=== PATIENT | male | born 1935 | race Caucasian/White ===

== ENCOUNTER 2023-09-28 09:46 | Inpatient (IN) | payer MEDICARE, OTHER, SELFPAY ==
[2023-09-27 14:33] VITALS: BP 141/78
--- NOTE | 2023-09-27 14:38 | ED.GENMED ---
ED Provider Triage
-
Patient seen by provider in Triage?: Seen in Triage
87 year old male tripped over tomato plant and fell. On . Struck head and left thigh. Also has injury to left forearm. Alert on exam, no obvious deficit. No c-spine tenderness. Head CT, left femur and forearm xrays ordered. To RP.
History of Present Illness
General
Chief Complaint: Fall
Time Seen by Provider: 09/27/23 15:18
Past History
Past History
ED Past Medical History: Arrthythmia
Social History
Tobacco: Non-smoker
Alcohol: None
Drug: None
Personal:
Living: with family
Employment: Retired
Family History
Family History: Hypertension
Course
Orders/Labs/Results
Orders:
Orders
09/27/23 14:37
CT Head W/o Iv Contrast Urgent
Comment:
Reason For Exam: fall, on
CR Femur - Left Min 2 Vw Urgent
Comment:
Reason For Exam: fall
CR Forearm - Left 2 View Urgent
Comment:
Reason For Exam: fall
09/27/23 16:42
CT Lower Ext W/iv Cont Lt Urgent
Comment:
Reason For Exam: L thigh hematoma, on , fall
Acetaminophen [Tylenol] 650 mg PO NOW STA
09/27/23 17:13
Complete Blood Count/With Diff Urgent
Comprehensive Metabolic Panel Urgent
PTT Urgent
Prothrombin Time Urgent
09/27/23 19:06
HYDROmorphone [Dilaudid] 0.25 mg IV NOW STA
09/27/23 19:14
HYDROmorphone [Dilaudid] 0.5 mg IV NOW STA
Abnormal Lab Results
09/27/23
17:13
Plt Count 117 L 10^3/uL
(130-400)
Absolute Neuts (auto) 7.1 H 10^3/uL
(1.4-6.5)
Neutrophils % 78.9 H %
(42.2-75.2)
Lymphocytes % 13.3 L %
(20.5-51.1)
PT 18.3 H Sec
(11.4-14.6)
BUN 23 H mg/dl
(9-20)
Glucose 112 H mg/dl
(70-99)
Total Bilirubin 1.5 H mg/dl
(0.2-1.3)
09/27/23 17:13
09/27/23 17:13
Vital Signs
Initial and Last Documented VS:
Initial Vital Signs
Temp Pulse Resp BP Pulse Ox
98.9 F 71 18 141/78 97
09/27/23 14:33 09/27/23 14:33 09/27/23 14:33 09/27/23 14:33 09/27/23 14:33
Last Documented Vital Signs
Temp Pulse Resp BP Pulse Ox
98.9 F 63 18 141/86 97
09/27/23 14:33 09/27/23 19:17 09/27/23 14:33 09/27/23 19:17 09/27/23 19:17
ED Attending Note
-
Portions of this chart may have been created with voice recognition software.� Occasional wrong word or��sound alike� substitutions may have occurred due to the inherent limitations of voice recognition software.
Discharge Plan
Departure
Discharge Problem:
Traumatic hematoma of left thigh
Instructions: Hematoma
Prescriptions:
New
hydrocodone-acetaminophen 5-325 mg tablet
1 tab PO Q8H PRN (Reason: Pain) Qty: 12 0RF
No Action
[id number] [Centrum Silver Ultra Men's] 1 EACH tablet
1 ea PO DAILY
atorvastatin [Lipitor] 10 MG tablet
10 mg PO HS
finasteride [Proscar] 5 MG tablet
5 mg PO HS
calcium carbonate-vitamin D3 [Calcium 600 + D(3)] 1 EACH capsule
1 ea PO BID
dofetilide 500 MCG capsule
500 mcg PO BID
calcium carbonate [Antacid (calcium carbonate)] 200 MG tablet,chewable
200 mg PO DAILY
cephalexin 500 MG capsule
500 mg PO TID Qty: 3 0RF
Rx Instructions:
please take at 8pm tonight, then 8am and 4pm on 09/07.
dabigatran etexilate [Pradaxa] 150 MG capsule
150 mg PO BID Qty: 0 0RF
Rx Instructions:
HOLD post procedure- OK to resume on 09/07 in PM
Referrals:
Kandy Flores DO [Family Provider] - Follow up in 2-3 days
Rafat Chairez MD [Active] - Follow up in 5-7 days
Activity Restrictions/Additional Instructions:
YOU HAVE NO FRACTURES
BUT A LARGE HEMATOMA (BRUISING) TO YOUR THIGH
WEAR THE NATHANIEL WRAP DURING THE DAY
USE TH EWALKER TO HELP YOU WALK
EITHER TAKE REGULAR TYLENOL OR VICODIN EVERY 8 HORUS NEEDED FOR PAIN
IF YOU TAKE THE VICODIN, USE A STOOL SOFTENER TO PREVENT [id number]
MAKE SURE YOU ARE CAREFUL WHEN YOU GET UP AND THAT YOU ARE NOT DIZZY/FALL
RETURN FOR : NUMBNESSS/TINGLING/WEAKNESS IN YOUR LEGS, SEVERE PAIN, SEVERE SWELLING,COLOR CHANGE OR ANY CONCERNS
CALL ORTHO FOR FOLLOW UP
KEEP YOUR WOUNDS CLEAN AND DRY
Interventions
Interventions:
*Risk Screen - Suicide Last Done: 09/27/23 14:33
*General Assessment Last Done: 09/27/23 14:33
*Neglect/Abuse Screening Last Done: 09/27/23 14:33
ED-Musculoskeletal Assessment Last Done: 09/27/23 16:36
ED- Neurological Assessment Last Done: 09/27/23 16:36
ED-Skin Assessment Last Done: 09/27/23 16:36
Discharge Date and Time
Print Language: UZBEK
--- NOTE | 2023-09-27 15:34 | ED.GENMED ---
History of Present Illness
<Radha Huber PA-C - Last Filed: 09/28/23 16:25>
General
Chief Complaint: Fall
Source: patient
Exam Limitations: none
Time Seen by Provider: 09/27/23 15:18
Nursing documentation reviewed up to this point in time: agreed with
History of Present Illness
History of Present Illness:
pt is a 87 y/o M h/o afib on eliquis
mechanical fall this morning while in the garden and landed on his left thigh onto the garden bed rail. pt had a cell phone in that pocket that he landed on
did strike his head and has a heamtoma but no LOC
was able to get back up and walk back to the hous but then developed pain and swelling L thigh that is very painful with movement
he was able to get into a wheelchair where he lives and be wheeled to car and from car wheeled in
he has not had any confusion, vomiting, neck pain, cp, sob, flank pain/abdominal pain, back pain, weakness
he has pain and swelling at the left lateral femur limiting his ROM of his hip and knee
abrasion left forearm
superfiical right forearm scratch
tetnaus utd
nothing taken for pain
Past History
<Radha Huber PA-C - Last Filed: 09/28/23 16:25>
Past History
ED Past Medical History: Arrthythmia
Social History
Tobacco: Non-smoker
Alcohol: None
Drug: None
Personal:
Living: with family
Employment: Retired
Family History
Family History: Hypertension
Review of Systems
<Radha Huber PA-C - Last Filed: 09/28/23 16:25>
Review of Systems
Allergies reviewed?: Yes
All Other Systems: Not applicable
Phy Exam
<Radha Huber PA-C - Last Filed: 09/28/23 16:25>
Physical Exam
Physical Exam:
GENERAL: Alert , in no apparent distress
HEAD: small hematoma left upper forehead laterally
NECK: no midline tenderness, active ROM intact, no paraspinal muscle tenderness;
EYE: pupils equal and reactive, EOMs intact.
ENT: o/p clr, mmm. no hemotympanum
CARDIAC: Regular rate and rhythm, no edema
LUNGS: Clear breath sounds bilaterally, no acute respiratory distress, no wheezes/rales/rhonchi
ABDOMEN: Soft, without focal tenderness, no r/g, no cvat
NEUROLOGICAL: Alert and oriented, no focal neuro deficits, CN intact, 5/5 strength, sensation intact
SKIN: Warm and dry, superficial abrasion left forearm, scratches on the right forearm, hematoma left forehead, no skin changes to the left lateral thigh but significant soft tissue swelling
MUSCULOSKELETAL: Firm significant soft tissue swelling to the left lateral thigh distal to the hip and proximal to the knee without skin changes or bleeding, patient has painful range of motion of his left hip flexion but no bony tenderness of the
hip or knee
Abrasions to the bilateral forearms with full range of motion
PSYCH: Normal and appropriate interaction.
Course
<Radha Huber PA-C - Last Filed: 09/28/23 16:25>
Orders/Labs/Results
Orders:
Orders
09/27/23 Breakfast
Regular
At Your Request: Limited Participation
09/27/23 14:37
CT Head W/o Iv Contrast Urgent
Comment:
Reason For Exam: fall, on eliquis
CR Femur - Left Min 2 Vw Urgent
Comment:
Reason For Exam: fall
CR Forearm - Left 2 View Urgent
Comment:
Reason For Exam: fall
09/27/23 16:42
CT Lower Ext W/iv Cont Lt Urgent
Comment:
Reason For Exam: L thigh hematoma, on eliquis, fall
Acetaminophen [Tylenol] 650 mg PO NOW STA
09/27/23 17:13
Complete Blood Count/With Diff Urgent
Comprehensive Metabolic Panel Urgent
PTT Urgent
Prothrombin Time Urgent
09/27/23 19:06
HYDROmorphone [Dilaudid] 0.25 mg IV NOW STA
09/27/23 19:14
HYDROmorphone [Dilaudid] 0.5 mg IV NOW STA
09/27/23 22:19
Admit/Transfer Patient As Directed
Co-Sign Provider:
Level of Care: Observation services
Assign to:: Medical/Surgical
Physician / Group: Silvestre
Diagnosis: Fall, L Thigh Hematoma
PRN Pain Medication Management As Directed
May give lesser potent ordered pain med per pt: Yes
preference::
Protocol:: Medication orders for pain may be administered in a
manner that supports deferring to patient preference
when the pt is:
- Requesting an ordered lesser potent pain medication.
Least to most potent pain medications are defined
as: acetaminophen < NSAID < tramadol < opioids
(morphine, oxycodone, hydromorphone).
- Requesting a lesser dose of the same medication IF
ORDERED.
- Requesting a less intrusive route of administration
if both routes are prescribed by the provider (PO <
IV).
09/27/23 22:21
Code Status As Directed
Resuscitation Status: Full Code
09/27/23 23:00
Flush (0.9% Sodium Chloride) [Flush (Nss)] See Dose Instructions IV PER PROTOCOL
09/27/23 23:40
Acetaminophen [Tylenol] 650 mg PO Q4HPRN PRN
HYDROmorphone [Dilaudid] 0.5 mg IV Q4HPRN PRN
09/27/23 23:40
WOUND/OSTOMY CONSULT Routine
Reason for Consult: Abrasions
Activity As Directed
Activity Level: Ambulate
With Assistance
I/O [Intake/ Output] As Directed
Frequency: Per unit guidelines
Pneumatic Compression Sleeves As Directed
Type: Knee high
Vital Signs As Directed
Frequency: Per unit guidelines
Cpap [RESP] Routine
Patient to use own unit?: Yes
DX Deep Vein Thrombosis Video Routine
09/28/23 06:56
Basic Metabolic Panel IN AM
Complete Blood Count/No Diff IN AM
09/28/23 08:00
Empagliflozin [Jardiance] 10 mg PO DAILY
Furosemide [Lasix] 20 mg PO DAILY
09/28/23 09:26
Vascular Surgery Consult Routine
Consulting Provider: Jose Enrique Shaffer
Was physician already notified: Yes
09/28/23 12:46
H&H Q6H
09/28/23 18:00
Finasteride [Proscar] 5 mg PO QPM
09/28/23 19:00
H&H Q6H
09/28/23 23:59
H&H Q6H
09/29/23 03:45
H&H Q6H
09/29/23 06:00
Complete Blood Count/No Diff IN AM
Magnesium IN AM
Abnormal Lab Results
09/27/23 09/28/23
17:13 06:56
RBC 4.45 L 10^6/uL
(4.70-6.10)
Plt Count 117 L 10^3/uL 114 L 10^3/uL
(130-400) (130-400)
Absolute Neuts (auto) 7.1 H 10^3/uL
(1.4-6.5)
Neutrophils % 78.9 H %
(42.2-75.2)
Lymphocytes % 13.3 L %
(20.5-51.1)
PT 18.3 H Sec
(11.4-14.6)
BUN 23 H mg/dl
(9-20)
Glucose 112 H mg/dl 111 H mg/dl
(70-99) (70-99)
Total Bilirubin 1.5 H mg/dl
(0.2-1.3)
09/28/23 06:56
09/28/23 06:56
Vital Signs
Initial and Last Documented VS:
Initial Vital Signs
Temp Pulse Resp BP Pulse Ox
98.9 F 71 18 141/78 97
09/27/23 14:33 09/27/23 14:33 09/27/23 14:33 09/27/23 14:33 09/27/23 14:33
Last Documented Vital Signs
Temp Pulse Resp BP Pulse Ox
98.2 F 67 12 137/69 95
09/28/23 15:57 09/28/23 15:00 09/28/23 15:00 09/28/23 15:00 09/28/23 15:00
<Erik Javed Jr., IRAM - Last Filed: 09/27/23 21:29>
Orders/Labs/Results
Orders:
Orders
09/27/23 Breakfast
Regular
At Your Request: Limited Participation
09/27/23 14:37
CT Head W/o Iv Contrast Urgent
Comment:
Reason For Exam: fall, on eliquis
CR Femur - Left Min 2 Vw Urgent
Comment:
Reason For Exam: fall
CR Forearm - Left 2 View Urgent
Comment:
Reason For Exam: fall
09/27/23 16:42
CT Lower Ext W/iv Cont Lt Urgent
Comment:
Reason For Exam: L thigh hematoma, on eliquis, fall
Acetaminophen [Tylenol] 650 mg PO NOW STA
09/27/23 17:13
Complete Blood Count/With Diff Urgent
Comprehensive Metabolic Panel Urgent
PTT Urgent
Prothrombin Time Urgent
09/27/23 19:06
HYDROmorphone [Dilaudid] 0.25 mg IV NOW STA
09/27/23 19:14
HYDROmorphone [Dilaudid] 0.5 mg IV NOW STA
09/27/23 22:19
Admit/Transfer Patient As Directed
Co-Sign Provider:
Level of Care: Observation services
Assign to:: Medical/Surgical
Physician / Group: Silvestre
Diagnosis: Fall, L Thigh Hematoma
PRN Pain Medication Management As Directed
May give lesser potent ordered pain med per pt: Yes
preference::
Protocol:: Medication orders for pain may be administered in a
manner that supports deferring to patient preference
when the pt is:
- Requesting an ordered lesser potent pain medication.
Least to most potent pain medications are defined
as: acetaminophen < NSAID < tramadol < opioids
(morphine, oxycodone, hydromorphone).
- Requesting a lesser dose of the same medication IF
ORDERED.
- Requesting a less intrusive route of administration
if both routes are prescribed by the provider (PO <
IV).
09/27/23 22:21
Code Status As Directed
Resuscitation Status: Full Code
09/27/23 23:00
Flush (0.9% Sodium Chloride) [Flush (Nss)] See Dose Instructions IV PER PROTOCOL
09/27/23 23:40
Acetaminophen [Tylenol] 650 mg PO Q4HPRN PRN
HYDROmorphone [Dilaudid] 0.5 mg IV Q4HPRN PRN
09/27/23 23:40
WOUND/OSTOMY CONSULT Routine
Reason for Consult: Abrasions
Activity As Directed
Activity Level: Ambulate
With Assistance
I/O [Intake/ Output] As Directed
Frequency: Per unit guidelines
Pneumatic Compression Sleeves As Directed
Type: Knee high
Vital Signs As Directed
Frequency: Per unit guidelines
Cpap [RESP] Routine
Patient to use own unit?: Yes
DX Deep Vein Thrombosis Video Routine
09/28/23 06:56
Basic Metabolic Panel IN AM
Complete Blood Count/No Diff IN AM
09/28/23 08:00
Empagliflozin [Jardiance] 10 mg PO DAILY
Furosemide [Lasix] 20 mg PO DAILY
09/28/23 09:26
Vascular Surgery Consult Routine
Consulting Provider: Jose Enrique Shaffer
Was physician already notified: Yes
09/28/23 12:46
H&H Q6H
09/28/23 18:00
Finasteride [Proscar] 5 mg PO QPM
09/28/23 19:00
H&H Q6H
09/28/23 23:59
H&H Q6H
09/29/23 03:45
H&H Q6H
09/29/23 06:00
Complete Blood Count/No Diff IN AM
Magnesium IN AM
Abnormal Lab Results
09/27/23 09/28/23
17:13 06:56
RBC 4.45 L 10^6/uL
(4.70-6.10)
Plt Count 117 L 10^3/uL 114 L 10^3/uL
(130-400) (130-400)
Absolute Neuts (auto) 7.1 H 10^3/uL
(1.4-6.5)
Neutrophils % 78.9 H %
(42.2-75.2)
Lymphocytes % 13.3 L %
(20.5-51.1)
PT 18.3 H Sec
(11.4-14.6)
BUN 23 H mg/dl
(9-20)
Glucose 112 H mg/dl 111 H mg/dl
(70-99) (70-99)
Total Bilirubin 1.5 H mg/dl
(0.2-1.3)
09/28/23 06:56
09/28/23 06:56
Vital Signs
Initial and Last Documented VS:
Initial Vital Signs
Temp Pulse Resp BP Pulse Ox
98.9 F 71 18 141/78 97
09/27/23 14:33 09/27/23 14:33 09/27/23 14:33 09/27/23 14:33 09/27/23 14:33
Last Documented Vital Signs
Temp Pulse Resp BP Pulse Ox
98.2 F 67 12 137/69 95
09/28/23 15:57 09/28/23 15:00 09/28/23 15:00 09/28/23 15:00 09/28/23 15:00
<Radha Huber PA-C - Last Filed: 09/28/23 16:25>
MDM/Problems Addressed
Differential Diagnosis Includes:
hematoma, contusion, fracture, bleed, abrasions
MDM/Problems Addressed:
87 y/o F L femur hematoma after fall
on eliquis
large area of swelling with sigifnicant pain
no neuro sypmtoms
hit head without LOC
nv intact
pain and large hematoma left thight will ct for better imaging to r/o active extravasation
abrasions irrigated, dressed
head ct neg
d/w dr. murcia
will CT with IV ocontrast to r/o active bleeding
suspected thigh heamtoma
will require pain control, ambualtion trial
<Erik Javed Jr., PA-C - Last Filed: 09/27/23 21:29>
*Critical Care Note
Total Time (30-74mins, 75-104mins- exclusive of procedures): Not Applicable
<Erik Javed Jr., PA-C - Last Filed: 09/27/23 21:29>
Update Note
Update Note:
[address] [place]//patient reassessed and given information that his CT scan did not show emergent injury to the left thigh. We time to get the patient up to walk he was not able to ambulate concerning this patient will be admitted for PT and
case management cs.
ED Attending Note
<Radha Huber PA-C - Last Filed: 09/28/23 16:25>
-
Portions of this chart may have been created with voice recognition software.� Occasional wrong word or��sound alike� substitutions may have occurred due to the inherent limitations of voice recognition software.
Discharge Plan
Departure
Patient Disposition: Admit
Date of Disposition: 09/27/23
Time of Disposition: 21:28
Admit to: Med/Surg
Admit to doctor: Silvestre
Presentation/result/management discussed w/ accepting MD/DO: Hospitalist
Patient with high blood pressure during this ER visit?: No
Condition: Good
Covid-19: Not Applicable
Discharge Problem:
Traumatic hematoma of left thigh, Ambulatory dysfunction, Fall
Interventions
Interventions:
*General Assessment Last Done: 09/27/23 14:33
*Neglect/Abuse Screening Last Done: 09/27/23 14:33
*Nursing Disposition Last Done: 09/27/23 23:40
ED-Musculoskeletal Assessment Last Done: 09/27/23 16:36
ED- Neurological Assessment Last Done: 09/27/23 16:36
ED-Skin Assessment Last Done: 09/27/23 16:36
Discharge Date and Time
Discharge Date/Time: 09/27/23 23:42
[2023-09-27] MEDS: TYLENOL 650 MG PO (16:51)
[2023-09-27 17:28] LABS: % Basophils 0.3 % (0-2); % Eosinophils 0.3 % (0-6); % Immature Granulocytes 0.3 % (0-0.5); % Lymphocytes 13.3 % (20.5-51.1); % Monocytes 6.9 % (1.7-9.3); % Neutrophils 78.9 % (42.2-75.2); Absolute Lymphocytes 1.2 10^3/uL (1.2-3.4); Absolute Monocytes 0.6 10^3/uL (0.1-0.6); Absolute Neutrophils 7.1 10^3/uL (1.4-6.5); Hematocrit 44.4 % (39.0-52.0); Hemoglobin 15.6 g/dL (13.0-18.0); Mean Corp Hgb Conc. 35.1 g/dL (33.0-37.0); Mean Corpuscular Hgb 30.9 pg (27.0-31.0); Mean Corpuscular Volume 87.9 fL (80.0-94.0); Mean Platelet Volume 9.5 fL (7.4-10.4); Nucleated Red Blood Cells % 0 % (-); Platelet Count 117 10^3/uL (130-400); Red Blood Cell Count 5.05 10^6/uL (4.70-6.10); Red Cell Dist. Width 13.2 % (11.5-14.5)
[2023-09-27 17:37] LABS: APTT 32.5 Sec (23.4-35.0); INR 1.54; PT 18.3 Sec (11.4-14.6)
[2023-09-27 17:42] LABS: ALT (SGPT) 26 U/L (0-50); AST (SGOT) 41 U/L (17-59); Albumin 4.1 g/dl (3.5-5.0); Alkaline Phosphatase 67 U/L (38-126); Blood Urea Nitrogen 23 mg/dl (9-20); Calcium 9.3 mg/dl (8.4-10.2); Carbon Dioxide 22 mmol/L (22-30); Chloride 106 mmol/L (98-107); Glucose 112 mg/dl (70-99); Potassium 4.5 mmol/L (3.5-5.1); Sodium 135 mmol/L (135-145); Total Bilirubin 1.5 mg/dl (0.2-1.3); Total Protein 6.6 g/dl (6.3-8.2); eGFR > 60.00
[2023-09-27 19:17] VITALS: BP 141/86
[2023-09-27] MEDS: DILAUDID 0.5 MG IV (19:20)
--- NOTE | 2023-09-27 22:25 | HPS.HSE ---
Family Physician
-
Family Physician: Kandy Flores
Chief Complaint
-
Fall, Leg Pain
History of Present Illness
Patient is an 87y M with PMH significant for persistent A-Fib, hypertension, CHF and MY who presents to ED complaining of left leg pain s/p fall today. Patient states that he was working in his garden when he stumbled and fell. He landed on
the frame of his raised garden beds - striking mostly his L thigh and L forearm. Patient did strike his head lightly and has a small abrasion on the scalp. He was able to get back up and notes that he continued to work in the garden for next 30
minutes or so before returning to his house. As the day went on, he developed increasing pain in the L thigh and ultimately was unable to stand / bear weight due to the pain.
Patient presented to the ED for further evaluation.
Patient is on Eliquis for A-Fib. He took his last dose this AM.
Medical History
Past Medical History
Past Medical History: Reports Other
Additional Past Medical History:
Persistent Atrial Fibrillation
Chronic HFpEF
Embolic Renal Infarct
Hypertension
MY on BiPAP
BPH
Past Surgical History: Reports Other
Additional Past Surgical History:
PVI Ablation x 2
PPM Placement
Mastoidectomy
Appendectomy
T&A
Social History
Tobacco: Non-smoker
Alcohol: None
Drug: None
Living: Alone
Family History
Family History: Not pertinent
Allergies / Home Medications
Allergies reflects when Allergies were last updated in [facility] [employer].
Home Medications with original date entered in [facility] [facility]
Allergy/Medication List:
Allergies
Allergy/AdvReac Type Severity Reaction Status Date / Time
No Known Allergies Allergy Verified 09/27/23 14:33
Home Medications
atorvastatin 10 mg tablet (Lipitor) 10 mg PO QPM 11/10/10
finasteride 5 mg tablet (Proscar) 5 mg PO QPM 11/10/10
apixaban 5 mg tablet (Eliquis) 5 mg PO BID 09/27/23
calcium carbonate 600 mg-vitamin D3 5 mcg (200 unit) tablet (Calcium 600 + D(3)) 1 tab PO BID 09/27/23
empagliflozin 10 mg tablet (Jardiance) 10 mg PO DAILY 09/27/23
furosemide 20 mg tablet 20 mg PO DAILY 09/27/23
multivit with min-folic acid-lutein 400 mcg-250 mcg chewable tablet (Centrum Silver) 1 tab PO DAILY 09/27/23
Review of Systems
-
History Source: Patient
A 12 point ROS was completed and negative except as noted: Yes
Constitutional: Denies Fever, Fatigue or Chills
Respiratory: Denies Cough or Trouble Breathing
Cardiac: Denies Chest Pain or Palpitations
Abdomen/GI: Denies Abdominal Pain, Nausea, Vomiting or Diarrhea
: Denies Dysuria, Frequency or Flank Pain
Musculoskeletal: Reports Muscle Pain and Muscle Stiffness; Denies Edema
Skin: Reports Other (Abrasions / skin lesions.)
Neurological: Denies Dizzy or Headache
Psych: Denies Depression or Anxiety
Physical Exam
Vital Signs
Vital Signs
Temp Pulse Resp BP Pulse Ox
98.9 F 63 18 141/86 97
09/27/23 14:33 09/27/23 19:17 09/27/23 14:33 09/27/23 19:17 09/27/23 19:17
Physical Exam
General: Other (87y M in mild distress due to pain.)
HEENT: Moist mucous membranes and PERRLA
Respiratory: Clear; No Wheezes, Rales or Rhonchi
Cardiac: S1/S2 and Irregular Rhythm; No Murmur
GI: Soft, Non Tender, Non Distended and Normal Bowel Sounds
Musculoskeletal: No Clubbing, No Cyanosis and Other (Swelling / hematoma over the L anterior / lateral thigh with focal tenderness. No erythema, warmth, fluctuance or induration. No ecchymosis.)
Neuro: AO x 3 and Nonfocal/grossly intact
Laboratory Results
-
09/27/23 17:13
09/27/23 17:13
Laboratory Results
PT 18.3 Sec (11.4-14.6) H 09/27/23 17:13
INR 1.54 09/27/23 17:13
APTT 32.5 Sec (23.4-35.0) 09/27/23 17:13
Total Bilirubin 1.5 mg/dl (0.2-1.3) H 09/27/23 17:13
AST 41 U/L (17-59) 09/27/23 17:13
ALT 26 U/L (0-50) 09/27/23 17:13
Alkaline Phosphatase 67 U/L (38-126) 09/27/23 17:13
Impression/Plan
-
A/P: Patient is an 87y M with PMH significant for A-Fib on Eliquis, CHF and HTN who presents to ED complaining of L thigh pain s/p fall today.
Left Thigh Hematoma
- Observe overnight for symptom control and further monitoring.
- Hold Eliquis.
- Pain control.
- Follow H&H.
- Follow for new / worsening pain.
- Consider Vascular Surgery evaluation if H&H falls or pain is poorly controlled.
Fall at Home
- PT / OT evaluations.
- No suspicious prodrome of lightheadedness, dizziness, etc.
Left Forearm Abrasion
Left Scalp Abrasion
- Skin lesions cleaned and dressed in the ED. Bleeding controlled.
- CT head was unremarkable.
- Wound Care eval for local care recommendations.
Persistent Atrial Fibrillation
- Stable. s/p PVI Ablation x 2.
- Holding Eliquis as noted above.
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
- Resume Eliquis when OK to do so.
- Rate controlled on no chronotropic medications.
Chronic HFpEF
- Stable. Appears euvolemic.
- Continue current regimen of Jardiance, Lasix, etc.
- Follow I/Os, daily weights, etc.
MY on BiPAP
- Patient uses BiPAP at home - he believes 11/18.
- Family bringing his machine from home for use.
DVT Prophylaxis: SCDs
Code Status: Full
[2023-09-27 22:57] VITALS: BP 156/78
[2023-09-27 23:40] VITALS: BP 156/78
[2023-09-27 23:43] VITALS: BMI 33.0
[2023-09-27 23:45] VITALS: BP 151/81
[2023-09-28] VITALS (19 sets, daily range): BP systolic 5–137; BP diastolic 52–94; BMI 33.0; BMI 32.2
[2023-09-28] MEDS: TYLENOL 650 MG PO (00:14)
--- NOTE | 2023-09-28 01:24 | PTCARENOTE ---
Received pt from ER,alert oriented,tolerated transfer well.VS stable,afebrile.Physical assessment preformed,Left upper thigh + for edema,decreased ROM,pt + dp and posterior tib pulses,left foot warm.Pt can turn for assessment.Oriented to room,oral
hygiene preformed by pt,scds applied pt receptive.Close observation,ongoing throughout the night.
[2023-09-28] MEDS: DILAUDID 0.5 MG IV ×3 (01:36→13:58)
[2023-09-28 08:18] LABS: Hematocrit 39.4 % (39.0-52.0); Hemoglobin 13.8 g/dL (13.0-18.0); Mean Corpuscular Volume 88.5 fL (80.0-94.0); Mean Platelet Volume 9.7 fL (7.4-10.4); Platelet Count 114 10^3/uL (130-400); Red Blood Cell Count 4.45 10^6/uL (4.70-6.10); Red Cell Dist. Width 13.2 % (11.5-14.5); White Blood Cell Count 6.5 10^3/uL (4.8-10.8)
[2023-09-28] MEDS: LASIX 20 MG PO (08:20)
[2023-09-28] MEDS: JARDIANCE 10 MG PO (08:20)
[2023-09-28 08:59] LABS: Blood Urea Nitrogen 20 mg/dl (9-20); Calcium 8.7 mg/dl (8.4-10.2); Carbon Dioxide 27 mmol/L (22-30); Chloride 103 mmol/L (98-107); Estimated Creatinine Clearance 85 ml/min; Glucose 111 mg/dl (70-99); Sodium 135 mmol/L (135-145); eGFR > 60.00
--- NOTE | 2023-09-28 09:27 | W.PN.HOSP.TC ---
Today's Communication/Plan
-
consult vascular surgery
hold eliquis
serial H&H
Assessment / Plan
Assessment / Plan
pt is an 87 year old male
mechanical fall resulting in Left Thigh Hematoma ( No suspicious prodrome of lightheadedness, dizziness, etc.)--PT/OT--consult vascular surgery (CT scan shows active bleeding)--HGB did drop 2 gms but from 15 to 13--holding Eliquis--no need for
transfusion at this time- Pain control - Follow for new / worsening pain.
Left Forearm Abrasion--Left Scalp Abrasion - Skin lesions cleaned and dressed in the ED - CT head was unremarkable - Wound Care eval for local care recommendations.
Persistent Atrial Fibrillation - Stable. s/p PVI Ablation x 2. 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
Chronic HFpEF - Stable. Appears euvolemic - Continue current regimen of Jardiance, Lasix, etc- Follow I/Os, daily weights, etc.
MY on BiPAP - Patient uses BiPAP at home - he believes 11/18 - Family bringing his machine from home for use.
DVT Prophylaxis: SCDs
Code Status: Full
Anticipated Discharge: > 48 hours
Subjective/Interval History
-
Date of Service: September 28, 2023
pt still with pain in leg although does say it is softer
Objective Data
-
Labs:
Laboratory Results
09/28/23
06:56
WBC 6.5
Hgb 13.8
Hct 39.4
Plt Count 114 L
Sodium 135
Potassium 4.0
Chloride 103
Carbon Dioxide 27
BUN 20
Creatinine 0.7
Glucose 111 H
Calcium 8.7
Vital Signs:
max temp for 24 hours
09/27/23
14:33
Temp 98.9 F
Vital Signs
Temp Pulse Resp BP Pulse Ox
97.7 F 71 16 133/75 98
09/28/23 07:09 09/28/23 07:09 09/28/23 07:09 09/28/23 07:09 09/28/23 07:09
I&O
09/27/23 09/28/23 09/29/23
06:59 06:59 06:59
Intake Total 540 / 540
Output Total 600 / 600
Balance -60 / -60
Review of Systems
-
All other systems: Reviewed and negative
Musculoskeletal: Reports Other (left leg pain and swelling)
Physical Exam
-
General: Well Developed, Well Nourished and No Apparent Distress
HEENT: Normocephalic; Negative Oxygen
Respiratory: Clear to Auscultation; Negative Wheezes or Rhonchi
Cardiac: Regular Rhythm and S1/S2; Negative Murmur
GI: Soft, Nontender, Nondistended and Normal Bowel Sounds
Musculoskeletal: Other (upper left thigh swollen, firm--no obvious bruising noted--right LE swollen too)
Skin: Warm
Neuro: Awake and Alert
--- NOTE | 2023-09-28 09:30 | CON.VAS ---
Consultation
Consultation Request
Date/Time Consultation Performed: 09/28/23 0945
Requesting Provider: Hospitalist
Performing Provider: Shayna Shields, COLLETTE-C for Jose Enrique Shaffer MD
Reason for Consultation: Left thigh hematoma status post fall
Medical History
-
Chief Complaint: Left thigh hematoma
History of Present Illness:
This is an 87-year-old male with significant past medical history for persistent atrial fibrillation, hypertension, CHF, and obstructive sleep apnea who presented to [place] ED on 09/27/2023 after falling on his left leg earlier that day. Patient
states he was working on his raised bed garden when he tripped over the edge and fell from standing position to ground onto his left thigh with his cell phone in his pocket. He endorses that impact was on his left thigh and forearm. Does note that
he struck his head lightly but denies loss of consciousness. He endorses that he continued to work on his garden for roughly 30 minutes and then proceeded to walk back to his house, which he was able to do without difficulty. However, as the day
progressed he noted worsening pain and swelling at his left thigh prompting him to seek ED evaluation. He does endorse by the time he arrived to the ED he was unable to put pressure on his leg and required wheelchair assistance. Currently he notes
that pain has much improved from yesterday but he is still having difficulty with motor function particularly lifting his leg. He denies numbness, tingling, or paresthesia to the left leg/left foot. Denies coolness. He denies past medical history
of peripheral arterial disease or vascular surgical intervention. Denies claudication or rest pain. He is on Eliquis for atrial fibrillation.
Past Medical History
Past Medical History: Arrhythmias (Persistent Atrial Fibrillation), CHF (Chronic HFpEF) and Other (Embolic renal infarct, hypertension, MY on BiPAP, BPH)
Past Surgical History: Appendectomy, Cardiac (Permanent pacemaker, PVI ablation x 2), Tonsilectomy and Other (Mastoidectomy)
Social History
Tobacco: Non-Smoker
Alcohol: None
Drug: None
Allergies / Home Medications
Allergy/AdvReac Type Severity Reaction Status Date / Time
No Known Allergies Allergy Verified 09/27/23 14:33
�Medication �Instructions �Recorded �Confirmed �Type
atorvastatin 10 mg tablet (Lipitor) 10 mg PO QPM High Cholesterol 11/10/10 09/27/23 History
finasteride 5 mg tablet (Proscar) 5 mg PO QPM Urinary Issue 11/10/10 09/27/23 History
apixaban 5 mg tablet (Eliquis) 5 mg PO BID Blood Clot 09/27/23 09/27/23 History
Prevention/Tx
calcium carbonate 600 mg-vitamin 1 tab PO BID Supplement 09/27/23 09/27/23 History
D3 5 mcg (200 unit) tablet
(Calcium 600 + D(3))
empagliflozin 10 mg tablet 10 mg PO DAILY Diabetes 09/27/23 09/27/23 History
(Jardiance)
furosemide 20 mg tablet 20 mg PO DAILY Fluid 09/27/23 09/27/23 History
Retention/Swelling
multivit with min-folic 1 tab PO DAILY Supplement 09/27/23 09/27/23 History
acid-lutein 400 mcg-250 mcg
chewable tablet (Centrum Silver)
Review of Systems
-
History Source: Patient
Constitutional: Reports No Symptoms
EENT: Reports No Symptoms
Respiratory: Reports No Symptoms
Cardiac: Reports No Symptoms
Vascular: Denies Leg Pain / Claudication, Numbness or Tingling
Abdomen/GI: Reports No Symptoms
: Reports No Symptoms
Musculoskeletal: Reports Edema (Left upper thigh swelling and pain)
Skin: Reports No Symptoms
Neurological: Reports Other (Unable to lift left leg)
Endocrine: Reports No Symptoms
Physical Exam
Vital Signs
Temp Pulse Resp BP Pulse Ox
97.7 F 71 16 133/75 98
09/28/23 07:09 09/28/23 07:09 09/28/23 07:09 09/28/23 07:09 09/28/23 07:09
Lab Results
09/28/23 06:56
09/28/23 06:56
Physical Exam
General: No Apparent Distress and Comfortable
HEENT: Normocephalic, Anicteric and Atraumatic
Respiratory: Non Labored Respirations
Cardiac: Negative JVD
GI: Soft, Non Tender and Non Distended
Musculoskeletal: Edema (Left thigh diffusely edematous with upper posterior portion tight, no evidence of open wounds)
Skin: Warm
Neuro: AO x 3 and Other (Plantarflexion and extension intact, however patient is unable to bend at knee or left leg, sensation intact)
Pulses: Left Femoral: +1, Right Femoral: +2, Bilateral Dorsalis Pedis: +2 and Bilateral Posterior Tibial: +1
Assessment / Plan
-
Assessment: 87-year-old male with left thigh hematoma following fall on 09/27/2023 on oral anticoagulation of Eliquis.
Plan:
Given patient has decreased motor function and full compartments thigh from hematoma, significant concern for compartment syndrome. Would recommend proceeding to the OR emergently for hematoma washout and possible creation of fasciotomy.
N.p.o.
Continue to hold oral anticoagulation
Plan relayed to hospitalist
I performed this shared service with the attending. I evaluated the patient [id number] and have entered clinical documentation as shown in the encounter note. I performed the following component(s): history and physical exam. Note that medical
decision making is not final until attested by vascular attending.
--- NOTE | 2023-09-28 09:41 | CM ---
Addendum entered by Emperatriz Crawford 09/28/23 09:49:
Patient now for change to INP due to Vascular consult. CM will continue to follow for discharge planning needs.
Original Note:
Patient seen at bedside with physician. Patient given OBS/MCCAIN form patient indicated that he was not happy with OBS status as it causes all kinds of problems, CM explained process and that insurance gives guidelines for status. Patient considering
if he will sign form. Patient lives with in [facility], independent apartments with his . Patient was independent as possible and drives, no DME at home. Patient is part of the [facility] at [place]. PCP is Dr. Kandy Flores and they use
the [facility] on [address]. CM will continue to follow for discharge planning needs.
Plan; SNF vs home with VN pending medical treatment plan
--- NOTE | 2023-09-28 09:55 | W.PN.UPDATE ---
Addendum entered and electronically signed by Jose Enrique Shaffer MD 09/28/23 10:08:
Note I discussed with patient's daughter Antonina via the phone findings and plan. (Per patient's request). Phone number [phone].
Original Note:
Update Note
Progress Note Update
Urgently seen and evaluated. Full consultation to follow. Left thigh fullness/hematoma after fall while gardening yesterday. Progressively enlarging hematoma. Patient notes difficulty flexing thigh, but is able to move more easily distally
(ankle and knee). Exam demonstrates tense left thigh hematoma (still compressible though), no skin changes. No pulsatile mass. He does have difficulty with hip flexion (raising thigh off the bed).
CT scan reviewed, large anterior thigh compartment (left lower extremity).
Plan/discussed with patient my concern with large hematoma exerting compressional effect. Given difficulty of raising his thigh, would recommend urgent evacuation hematoma in the case that there is any nerve compression and/or muscle limitation
secondary to the large hematoma in order to prevent long-term sequela. I discussed with him potential evacuation hematoma, or discussed potential of fasciotomy of the compartment if generally diffuse interdigitated muscular hematoma. Discussed
either possibility, but I think this can be safely evacuated hopefully. Discussed varying incisions as a result. Discussed risks including but not limited to bleeding, infections, wound complications, need for staged intervention or skin closure
of skin is left open. Also potential of persistent neurologic deficit. He understands all wishes to proceed. Urgent OR now. Discussed with hospitalist. Hold anticoagulation.
--- NOTE | 2023-09-28 10:52 | W.SUR.PREOP ---
Pre-Operative Surgical Note
-
I have examined this patient prior to the performance of the scheduled procedure.
The patient's condition is unchanged from the time of the current History and
Physical and the patient is able to undergo the scheduled procedure.
--- NOTE | 2023-09-28 11:56 | W.IMMPOSTOP ---
Surgical Immed Post Op Note
-
Primary Surgeon: Edmund
Assisting Surgeon: COLLETTE Shields
Pre-op Diagnosis: Tense L thigh expanding hematoma with weakness.
Post-op Diagnosis: same
Procedure Performed: Urgent L thigh evacuation hematoma, anterior compartment fasciotomies, and closure over drains.
Anesthesia Type: General
Specimen: Hematomma
Estimated Blood Loss: 50cc at most acute blood, and likely ~200 cc or more old hematoma.
Complications: none
Operative Findings: Diffuse hematoma in muscle compartment, but mostly focally located collection with anterior comparment muscles.
[2023-09-28 13:10] LABS: Hematocrit 39.6 % (39.0-52.0); Hemoglobin 13.9 g/dL (13.0-18.0)
[2023-09-28] MEDS: NSS 1000 IV (13:47)
--- NOTE | 2023-09-28 15:09 | PTCARENOTE ---
patient received from PACU. assessments per work list. patient c/o left leg pain, medicated with Dilaudid with relief. monitor afib with paced beats. left leg dressing intact, doppler pedal pulses. GUILLERMINA's stripped per order. bladder scan as noted.
oriented to room, call brunner in reach. oxygen applied, room air pulse oximeter 90
--- NOTE | 2023-09-28 15:11 | OR.RPT ---
Operative Report
Operative Report
PROCEDURE DATE: 09/28/2023
Preoperative diagnosis: Tense expanding hematoma left thigh with motor weakness of flexion of hip.
Postoperative diagnosis: Same
Procedure: Emergent evacuation right thigh anterior compartment hematoma with anterior compartment fasciotomy
Surgeon: Edmund
Life Science Technical Officer: Shayna Shields, VESSEL SPECIALIST required for all aspects of procedure including assistance with traction/countertraction and assistance with closure.
Complications: None
Anesthesia: General
Indications for procedure:
Called regarding concern for expansive hematoma left thigh. I immediately evaluated patient and was concerned about weakness and flexion of hip, and extensive size of hematoma. Risk/benefit/alternatives of evacuation hematoma were discussed. In
addition based on CT scan imaging discussed concern for inability to evacuate the entirety of the hematoma due to interdigitation in the muscle, and therefore potential need for fasciotomy. Patient understood all wish to proceed.
Description of procedure:
Patient was identified brought to the operating room placed on the table in supine position. After the adequate administration of anesthesia he was prepped and draped in the standard surgical fashion. A standard preoperative timeout was undertaken
and everybody was in agreement the plan. A longitudinal incision was made in the left lateral proximal thigh that was carried through the skin subcutaneous tissue. Identified the fascial tissue, this was the fascia of the anterior compartment. It
was noted to be bulging. I used electrocautery to divide the fascia and the muscles immediately bulge. I tried to express hematoma through this incision but was unable to do so through the muscle. I therefore felt perhaps it was all
interdigitated in the muscle fibers, and therefore I needed to do complete fascial release. I therefore then slid close the Metzenbaum scissor proximally and distally through this incision to the level of the knee distally and very proximal
thigh/hip proximally to completely released the anterior compartment fascia. This resulted in significant decompression. Now I was able to better expose within the muscle tissue and then I was able to pop into the hematoma cavity. I now expressed
significant amount of gelatinous hematoma. This was all expressed out and pulled out with my hands. I then placed retractors in the field retracting the muscle tissue, and then identified a muscular branch active arterial bleeder. This was then
clipped with several clips and was suture-ligated as well with a 2-0 silk suture. Hemostasis was fully achieved at that site. I then inspected and did not see any other obvious bleeding site. I did not see any or could not express any further
hematoma. I therefore then placed 2 large round Dilip drains into this muscular bed which were brought out the skin through separate stab incisions and secured to the skin with nylon suture. I now tried to close the skin, but the deep dermal layer
was well adherent to the fascia and was somewhat thinned and therefore I could not really run a deep dermal layer. Therefore we elected to use 3-0 nylon vertical mattress type suture. The skin was closed as such. Dressings were applied. The
patient tolerated the procedure well.
[2023-09-28] MEDS: PROSCAR 5 MG PO (17:11)
[2023-09-28 18:51] LABS: Hematocrit 38.3 % (39.0-52.0); Hemoglobin 13.6 g/dL (13.0-18.0)
--- NOTE | 2023-09-28 20:30 | PTCARENOTE ---
on assessment AAOx3, pt denies pain, afib with paced beats on the monitor, 2L NC and has own CPAP at bedside for HS, urinal at bedside, left leg dressing intact, doppler pedal pulses. GUILLERMINA's stripped per order. call brunner in reach
[2023-09-28 23:41] LABS: Hematocrit 34.6 % (39.0-52.0); Hemoglobin 12.4 g/dL (13.0-18.0)
[2023-09-29] VITALS (13 sets, daily range): BP systolic 102–142; BP diastolic 40–110; PULSE 67; BMI 32.7
[2023-09-29 04:11] LABS: Hematocrit 37.2 % (39.0-52.0); Hemoglobin 13.3 g/dL (13.0-18.0)
[2023-09-29 04:18] LABS: Mean Corp Hgb Conc. 35.9 g/dL (33.0-37.0); Mean Corpuscular Hgb 31.6 pg (27.0-31.0); Mean Corpuscular Volume 88.2 fL (80.0-94.0); Platelet Count 124 10^3/uL (130-400); Red Blood Cell Count 4.14 10^6/uL (4.70-6.10); Red Cell Dist. Width 13.2 % (11.5-14.5); White Blood Cell Count 5.9 10^3/uL (4.8-10.8)
[2023-09-29 04:22] LABS: APTT 32.2 Sec (23.4-35.0); INR 1.46; PT 17.5 Sec (11.4-14.6)
[2023-09-29 04:48] LABS: Blood Urea Nitrogen 25 mg/dl (9-20); Calcium 8.7 mg/dl (8.4-10.2); Carbon Dioxide 23 mmol/L (22-30); Chloride 106 mmol/L (98-107); Estimated Creatinine Clearance 84 ml/min; Glucose 160 mg/dl (70-99); Magnesium 2.3 mg/dl (1.6-2.3); Potassium 4.5 mmol/L (3.5-5.1); Sodium 134 mmol/L (135-145); eGFR > 60.00
--- NOTE | 2023-09-29 07:33 | W.PN.VS ---
Addendum entered and electronically signed by Jose Enrique Shaffer MD 09/29/23 10:34:
Seen and examined with COLLETTE Shields. Agree with findings as noted below. Left thigh incision is clean dry and intact. Left thigh significantly soft now. No recurrent swelling or tenseness. His motor function has improved in the left thigh with
improved hip flexion. GUILLERMINA drain serosanguineous with drainage is noted. Plan/as discussed and noted below.
Original Note:
Today's Communication / Plan
-
Patient seen and evaluated at bedside with Dr. Jose Enrique Shaffer, below plan reviewed with attending.
Assessment/Plan
-
Assessment: 87-year-old male with left thigh hematoma following fall on 09/27/2023 on oral anticoagulation of Eliquis.
Plan:
Out of bed to chair with progression ambulation as tolerated today
PT/OT
Can restart oral anticoagulation
From a vascular surgical perspective can be downgraded to telemetry/medical surgical floor
Continue GUILLERMINA drains
Continue I and O
Subjective Data
-
Date of Service: September 29, 2023
Patient seen and examined at bedside, offers no complaints. Reports vast improvement in left lower extremity tenderness, tension/swelling, and immobility. Reports adequate postoperative pain management. Denies nausea, vomiting, fever, and chills.
Reports tolerating p.o. diet.
Objective Data
-
Vital Signs
Temp Pulse Resp BP Pulse Ox
97.7 F 63 13 128/74 95
09/29/23 07:13 09/29/23 06:30 09/29/23 06:30 09/29/23 06:00 09/29/23 06:30
Intake and Output
09/28/23 09/29/23 09/30/23
06:59 06:59 06:59
Intake Total 540 / 540 1035 / 1035
Output Total 600 / 600 1758 / 1758
Balance -60 / -60 -723 / -723
Intake:
Oral fluids 540 / 540 480 / 480
IV fluids (Total) 555 / 555
NSS @ 80 ML/HR 0 / 0
Normosol 75 / 75
Nss 1,000 ml @ 80 mls/hr IV . 480 / 480
[id number] WILLOW Rx#:[id number]
Output:
Drain Output (Total) 108 / 108
Left Lower Leg B 65 / 65
Left Upper Leg A 43 / 43
Urine, Voided 600 / 600 1650 / 1650
Lab Results
09/29/23 03:49
09/29/23 03:49
Calcium 8.7 mg/dl (8.4-10.2) 09/29/23 03:49
Magnesium 2.3 mg/dl (1.6-2.3) 09/29/23 03:49
Total Bilirubin 1.5 mg/dl (0.2-1.3) H 09/27/23 17:13
AST 41 U/L (17-59) 09/27/23 17:13
ALT 26 U/L (0-50) 09/27/23 17:13
Alkaline Phosphatase 67 U/L (38-126) 09/27/23 17:13
Total Protein 6.6 g/dl (6.3-8.2) 09/27/23 17:13
Albumin 4.1 g/dl (3.5-5.0) 09/27/23 17:13
Physical Exam
-
AAOx3, no apparent distress
No tachycardia
No dyspnea on room air
ABD flat, nontender, nondistended
Left lower extremity with scant edema, left thigh soft, GUILLERMINA drain site CDI and output serosanguineous, left DP +2 palpable foot warm
--- NOTE | 2023-09-29 08:23 | W.PN.HOSP.TC ---
Today's Communication/Plan
-
OK for transfer to tele
PT/OT
restarting Eliquis
Assessment / Plan
Assessment / Plan
pt is an 87 year old male
mechanical fall resulting in Left Thigh Hematoma ( No suspicious prodrome of lightheadedness, dizziness, etc.)--apprec vascular surgery (CT scan showed active bleeding), s/p Urgent L thigh evacuation hematoma, anterior compartment fasciotomies, and
closure over drains--HGB did drop 2 gms but from 15 to 13 but stabilized--restarting Eliquis per vascular--still no need for transfusion at this time--OOB, PT/OT
Left Forearm Abrasion--Left Scalp Abrasion - Skin lesions cleaned and dressed in the ED - CT head was unremarkable - Wound Care eval for local care recommendations.
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
Chronic HFpEF - Stable. Appears euvolemic - Continue current regimen of Jardiance, Lasix, etc- Follow I/Os, daily weights, etc.
MY on BiPAP - Patient uses BiPAP at home - he believes 11/18 - Family bringing his machine from home for use.
DVT Prophylaxis: SCDs
Code Status: Full
Anticipated Discharge: > 48 hours
Subjective/Interval History
-
Date of Service: September 29, 2023
pt doing well post op--can bend his knee and lift leg better--no further pain
Objective Data
-
Labs:
Laboratory Results
09/28/23 09/29/23 09/29/23
23:24 03:49 03:49
WBC 5.9 Cancelled
Hgb 12.4 L 13.3
Hct 34.6 L
Plt Count
PT
INR
APTT
Sodium
Potassium
Chloride
Carbon Dioxide
BUN
Creatinine
Glucose
Calcium
09/29/23 09/29/23 09/29/23
03:49 03:49 03:49
WBC
Hgb Cancelled
Hct 37.2 L Cancelled
Plt Count 124 L Cancelled
PT 17.5 H
INR 1.46
APTT 32.2
Sodium 134 L
Potassium 4.5
Chloride 106
Carbon Dioxide 23
BUN 25 H
Creatinine 0.7
Glucose 160 H
Calcium 8.7
Vital Signs:
max temp for 24 hours
09/29/23
03:25
Temp 97.8 F
Vital Signs
Temp Pulse Resp BP Pulse Ox
97.7 F 63 13 128/74 95
09/29/23 07:13 09/29/23 06:30 09/29/23 06:30 09/29/23 06:00 09/29/23 06:30
I&O
09/28/23 09/29/23 09/30/23
06:59 06:59 06:59
Intake Total 540 / 540 1035 / 1035
Output Total 600 / 600 1758 / 1758
Balance -60 / -60 -723 / -723
Review of Systems
-
All other systems: Reviewed and negative
Physical Exam
-
General: Well Developed, Well Nourished and No Apparent Distress
HEENT: Normocephalic, Atraumatic and Oxygen
Respiratory: Clear to Auscultation; Negative Wheezes or Rhonchi
Cardiac: Regular Rhythm and S1/S2; Negative Murmur
GI: Soft, Nontender, Nondistended and Normal Bowel Sounds
Musculoskeletal: No Clubbing, No Cyanosis and Other (left leg post op with drains in place)
Skin: Warm and Dry
Neuro: Awake and Alert
Psych: Calm
[2023-09-29] MEDS: LASIX 20 MG PO (08:29)
[2023-09-29] MEDS: JARDIANCE 10 MG PO (08:30)
--- NOTE | 2023-09-29 09:09 | CM ---
Patient seen at bedside. IMM reviewed with patient and copy of form placed in chart. Patient awaiting PT/OT assessment for review of options. Patient from [facility] and would like to return home with VN if possible or SNF at [place]
pending Therapy assessment. CM will continue to follow for discharge planning needs.
Plan; SNF vs home with VN
[2023-09-29] MEDS: ELIQUIS 5 MG PO ×2 (10:07→20:53)
--- NOTE | 2023-09-29 10:21 | WOUNDNOTE ---
WO RN note: Patient admitted with expanding L thigh hematoma after fall in garden, s/p L thigh evacuation of hematoma, anterior compartment fasciotomies and closure over drains by Dr. Shaffer yesterday.
See H&P for complete history.
PMH: a fib, ablation for a fib, prostatic hypertrophy.
Wound Location and type/assessment: Patient admitted with: L arm and hand dermal skin tears, scalp superficial abrasions, dry pink in appearance.
Appetite: on regular diet.
Pressure redistribution devices in place: Centrella Max air. He is sitting in recliner chair and can move self in chair. LLE elevated.
Plan: L arm and hand dressings changed. Protective foam changed on R heel (skin intact without redness). Skin on L heel and sacrum intact as per CAMPAIGN DIRECTORVOLODYMYR Simmons.
Will confirm orders with Dr. Patricio and discussed with VOLODYMYR Simmons.
Care plan to be updated and will follow as needed.
--- NOTE | 2023-09-29 10:25 | WOUNDNOTE ---
SCALP (TOP OF HEAD)
--- NOTE | 2023-09-29 11:12 | PTCARENOTE ---
pt oob to chair this am tolerated well, voiding in bathroom , pt Afib on monitor , BP 107/40 this am , currently on room air with sat of 94% , tolerating diet , pt seen by Dr Shaffer this am , L leg dressing redressed , GUILLERMINA drains intact draining
serosanguineous drainage, pt is now written to telemetry level of care , plan for pt be evaluated by physical therapy
--- NOTE | 2023-09-29 12:08 | PN.CDI ---
CDI
- -
CDI:
Physician Documentation Request
Admit Date: 09/28/23 09:46
Dear Doctor Sintia,
Please review the following and provide your response in the progress notes.
Clinical Indicators:
Pt admitted with Left thigh hematoma
09/27 Progress Note: '(CT scan shows active bleeding)--HGB did drop 2 gms but from 15 to 13--holding Eliquis--...'
Please clarify the relationship between these conditions:
hematoma is related to/associated with/exacerbated by Eliquis.
hematoma is not related to/associated with/exacerbated by Eliquis.
Other
Use of terms such as suspected, likely, concern for, or probable (associated with a specific diagnosis that is being evaluated, monitored, or treated as if it exists) are acceptable and can be coded in the inpatient setting, when documented at the
time of discharge.
Thank you,
Yulisa Bahena RN, BSN
CDI Specialist
Available via [place] [employer]
Please use your independent medical judgment in providing your response.
[2023-09-29] MEDS: PROSCAR 5 MG PO (17:15)
[2023-09-29] MEDS: LIPITOR 10 MG PO (17:15)
--- NOTE | 2023-09-29 20:30 | PTCARENOTE ---
on assessment AAOx3, pt denies pain, afib with paced beats on the monitor, RA and has own CPAP at bedside for HS, urinal at bedside, left leg dressing intact, doppler pedal pulses. GUILLERMINA's stripped per order. call brunner in reach
[2023-09-29] MEDS: OSCAL 500 + D 500 MG PO (20:53)
--- NOTE | 2023-09-29 23:00 | PTCARENOTE ---
pt arrived to unit via stretcher, VSS, reports pain mainly with movement, denies chest pain or SOB. dressing CDI, 2 GUILLERMINA drains patent. Pt + pulse with doppler. Pt oriented to room, independent with own BIPAP, call brunner within reach.
[2023-09-30 03:10] VITALS: BP 131/75
--- NOTE | 2023-09-30 07:52 | W.PN.VS ---
Addendum entered and electronically signed by Jose Enrique Shaffer MD 09/30/23 10:13:
Seen and examined with COLLETTE Shields. Agree with findings as noted below. Patient without significant new complaints. Left thigh incision is clean dry and intact. Thigh is very soft, remains completely soft with no recurrent hematoma. JPs
serosanguineous with amounts as noted in charting (reviewed by me). Drain stripped by me. Plan/as discussed and noted below. Hemoglobin is stable. Okay from my standpoint for discharge home. Would continue GUILLERMINA's and we will discontinue in the
office.
Original Note:
Today's Communication / Plan
-
Patient seen and examined at bedside with Dr. Jose Enrique Shaffer, below plan reviewed with attending.
Assessment/Plan
-
Assessment: 87-year-old male with left thigh hematoma following fall on 09/27/2023 on oral anticoagulation of Eliquis, POD #2 Emergent evacuation right thigh anterior compartment hematoma with anterior compartment fasciotomy
Plan:
PT/OT
Continue GUILLERMINA drains
Continue I and O
Subjective Data
-
Date of Service: September 30, 2023
Patient seen and examined at bedside, offers no complaints. Denies pain while at rest, but does note with attempts of ambulation and movement he has increased pain in left leg. Denies motor or sensation changes.
Objective Data
-
Vital Signs
Temp Pulse Resp BP Pulse Ox
97.3 F 62 20 131/75 97
09/30/23 03:10 09/30/23 03:10 09/30/23 03:10 09/30/23 03:10 09/30/23 03:10
Intake and Output
09/29/23 09/30/23 10/01/23
06:59 06:59 06:59
Intake Total 1035 / 1035 530 / 530
Output Total 1758 / 1758 618 / 618
Balance -723 / -723 -88 / -88
Intake:
Oral fluids 480 / 480 530 / 530
IV fluids (Total) 555 / 555
NSS @ 80 ML/HR 0 / 0
Normosol 75 / 75
Nss 1,000 ml @ 80 mls/hr IV . 480 / 480
[id number] WILLOW Rx#:[id number]
Output:
Drain Output (Total) 108 / 108 218 / 218
Left Lower Leg B 65 / 65 128 / 128
Left Upper Leg A 43 / 43 90 / 90
Urine, Voided 1650 / 1650 400 / 400
Calcium 8.7 mg/dl (8.4-10.2) 09/29/23 03:49
Magnesium 2.3 mg/dl (1.6-2.3) 09/29/23 03:49
Total Bilirubin 1.5 mg/dl (0.2-1.3) H 09/27/23 17:13
AST 41 U/L (17-59) 09/27/23 17:13
ALT 26 U/L (0-50) 09/27/23 17:13
Alkaline Phosphatase 67 U/L (38-126) 09/27/23 17:13
Total Protein 6.6 g/dl (6.3-8.2) 09/27/23 17:13
Albumin 4.1 g/dl (3.5-5.0) 09/27/23 17:13
Physical Exam
-
AAOx3, no apparent distress
No tachycardia
No dyspnea on room air
ABD flat, nontender, nondistended
Left lower extremity with scant edema, left thigh soft, GUILLERMINA drain site CDI and output serosanguineous, left DP +2 palpable foot warm
[2023-09-30 08:22] LABS: Hematocrit 38.4 % (39.0-52.0); Hemoglobin 13.5 g/dL (13.0-18.0); Mean Corp Hgb Conc. 35.2 g/dL (33.0-37.0); Mean Corpuscular Hgb 31.5 pg (27.0-31.0); Mean Corpuscular Volume 89.5 fL (80.0-94.0); Mean Platelet Volume 9.9 fL (7.4-10.4); Platelet Count 133 10^3/uL (130-400); Red Blood Cell Count 4.29 10^6/uL (4.70-6.10); Red Cell Dist. Width 13.2 % (11.5-14.5); White Blood Cell Count 7.9 10^3/uL (4.8-10.8)
[2023-09-30 08:26] VITALS: BP 158/66
[2023-09-30 08:41] LABS: Blood Urea Nitrogen 30 mg/dl (9-20); Calcium 8.9 mg/dl (8.4-10.2); Carbon Dioxide 23 mmol/L (22-30); Chloride 105 mmol/L (98-107); Estimated Creatinine Clearance 99 ml/min; Glucose 106 mg/dl (70-99); Magnesium 2.2 mg/dl (1.6-2.3); Sodium 136 mmol/L (135-145); eGFR > 60.00
[2023-09-30] MEDS: LASIX 20 MG PO (09:15)
[2023-09-30] MEDS: ELIQUIS 5 MG PO ×2 (09:16→20:59)
[2023-09-30] MEDS: JARDIANCE 10 MG PO (09:16)
[2023-09-30] MEDS: OSCAL 500 + D 500 MG PO ×2 (09:16→20:59)
--- NOTE | 2023-09-30 09:18 | W.PN.HOSP.TC ---
Today's Communication/Plan
-
will need d/c to SNF once cleared by vascular for d/c
Assessment / Plan
Assessment / Plan
pt is an 87 year old male
mechanical fall resulting in Left Thigh Hematoma exacerbated by Eliquis --apprec vascular surgery (CT scan showed active bleeding), s/p Urgent L thigh evacuation hematoma, anterior compartment fasciotomies, and closure over drains 09/27--HGB did drop
2 gms but from 15 to 13 but stabilized--restarted Eliquis per vascular--still no need for transfusion at this time--OOB, PT/OT
Left Forearm Abrasion--Left Scalp Abrasion - Skin lesions cleaned and dressed in the ED - CT head was unremarkable - Wound Care eval for local care recommendations.
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
Chronic HFpEF - Stable. Appears euvolemic - Continue current regimen of Jardiance, Lasix, etc- Follow I/Os, daily weights, etc.
MY on BiPAP - Patient uses BiPAP at home - he believes 11/18 - Family bringing his machine from home for use.
DVT Prophylaxis: SCDs
Code Status: Full
Anticipated Discharge: 24 - 48 hours
Subjective/Interval History
-
Date of Service: September 30, 2023
pt leg softer, drains still in place
Objective Data
-
Labs:
Laboratory Results
09/30/23
06:41
WBC 7.9
Hgb 13.5
Hct 38.4 L
Plt Count 133
Sodium 136
Potassium 4.0
Chloride 105
Carbon Dioxide 23
BUN 30 H
Creatinine 0.6 L
Glucose 106 H
Calcium 8.9
Vital Signs:
max temp for 24 hours
09/29/23
21:13
Temp 97.7 F
Vital Signs
Temp Pulse Resp BP Pulse Ox
97.4 F 58 14 158/66 96
09/30/23 08:26 09/30/23 08:26 09/30/23 08:26 09/30/23 08:26 09/30/23 08:26
I&O
09/29/23 09/30/23 10/01/23
06:59 06:59 06:59
Intake Total 1035 / 1035 530 / 530
Output Total 1758 / 1758 618 / 618
Balance -723 / -723 -88 / -88
Review of Systems
-
All other systems: Reviewed and negative
Musculoskeletal: Reports Other (leg pains with walking)
Physical Exam
-
General: Well Developed, Well Nourished and No Apparent Distress
HEENT: Normocephalic and Atraumatic
Respiratory: Clear to Auscultation; Negative Wheezes or Rhonchi
Cardiac: Regular Rhythm and S1/S2; Negative Murmur
GI: Soft, Nontender, Nondistended and Normal Bowel Sounds
Musculoskeletal: Other (left leg swollen with drains in place)
Psych: Calm
--- NOTE | 2023-09-30 09:23 | CM ---
Addendum entered by Emperatriz Crawford 09/30/23 14:02:
Patient accepted by [facility] in am. Please call report to [phone]/fax [phone]. CM will review options re; ambulance vs wheelchair van. patient aware of possible need and understands costs. patient daughter and in room with update
provided.
Original Note:
Patient seen at bedside with Physician. Patient interested in going to [facility] at discharge. CM sent referral via all scripts and left VM for Admissions. CM will continue to follow for discharge planning needs.
Plan; SNF; pending acceptance
[2023-09-30 10:10] VITALS: BMI 32.9
[2023-09-30 11:36] VITALS: BP 124/59
[2023-09-30 15:29] VITALS: BP 135/65
[2023-09-30] MEDS: PROSCAR 5 MG PO (18:13)
[2023-09-30] MEDS: LIPITOR 10 MG PO (18:13)
[2023-09-30 19:30] VITALS: BP 130/63
--- NOTE | 2023-09-30 23:00 | PTCARENOTE ---
Wound care provided to left forearm abrasion as ordered.
[2023-09-30 23:38] VITALS: BP 120/54
[2023-10-01 03:08] VITALS: BP 128/74
[2023-10-01 07:00] VITALS: BP 127/63
[2023-10-01 07:20] LABS: Hematocrit 36.9 % (39.0-52.0); Hemoglobin 12.9 g/dL (13.0-18.0); Mean Corpuscular Hgb 31.6 pg (27.0-31.0); Mean Corpuscular Volume 90.4 fL (80.0-94.0); Mean Platelet Volume 9.8 fL (7.4-10.4); Platelet Count 131 10^3/uL (130-400); Red Blood Cell Count 4.08 10^6/uL (4.70-6.10); Red Cell Dist. Width 13.4 % (11.5-14.5); White Blood Cell Count 7.4 10^3/uL (4.8-10.8)
--- NOTE | 2023-10-01 07:54 | W.PN.VS ---
Addendum entered and electronically signed by Jose Enrique Shaffer MD 10/01/23 08:08:
Seen and examined with DIRECTOR OF PRECLINICAL RESEARCH Cook this morning. Patient without specific complaints today/new complaints. Notes that he was able to ambulate yesterday. When he first bears weight he has some pain in the thigh but he is able to walk. No other
complaints. Thigh is very soft. Incision clean dry and intact. JPs serosanguineous. Plan/as discussed and noted below. Given moderate GUILLERMINA output (none rebecca bloody) would plan discharge home with JPs in place and we can remove in the office.
His hemoglobin is stable today again.
Original Note:
Today's Communication / Plan
-
Patient seen and examined at bedside with Dr. Jose Enrique Shaffer, below plan reviewed with attending.
Assessment/Plan
-
Assessment: 87-year-old male with left thigh hematoma following fall on 09/27/2023 on oral anticoagulation of Eliquis, POD #3 Emergent evacuation right thigh anterior compartment hematoma with anterior compartment fasciotomy
Plan:
PT/OT
Continue GUILLERMINA drains, patient will be discharged to rehab with drains in place
Drain education
Continue I and O
Cleared for discharge to rehab vascular surgical perspective, follow-up appointment placed in discharge instructions
Subjective Data
-
Date of Service: October 01, 2023
Patient seen and examined at bedside, continues to report adequate postoperative pain management. Additionally, notes he was able to ambulate for the first time yesterday with physical therapy. Continues to tolerate p.o. diet.
Objective Data
-
Vital Signs
Temp Pulse Resp BP Pulse Ox
97.6 F 54 16 127/63 95
10/01/23 07:00 10/01/23 07:00 10/01/23 07:00 10/01/23 07:00 10/01/23 07:00
Intake and Output
08/15/24 08/16/24 08/17/24
06:59 06:59 06:59
Intake Total 530 / 530 720 / 720
Output Total 618 / 618 1250 / 1250
Balance -88 / -88 -530 / -530
Intake:
Oral fluids 530 / 530 720 / 720
Output:
Drain Output (Total) 218 / 218 250 / 250
Left Lower Leg B 128 / 128 180 / 180
Left Upper Leg A 90 / 90 70 / 70
Urine, Voided 400 / 400 1000 / 1000
Other:
Number of approximated MODERATE 2
amounts of urine
Lab Results
10/01/23 05:52
09/30/23 06:41
Calcium 8.9 mg/dl (8.4-10.2) 09/30/23 06:41
Magnesium 2.2 mg/dl (1.6-2.3) 09/30/23 06:41
Total Bilirubin 1.5 mg/dl (0.2-1.3) H 09/27/23 17:13
AST 41 U/L (17-59) 09/27/23 17:13
ALT 26 U/L (0-50) 09/27/23 17:13
Alkaline Phosphatase 67 U/L (38-126) 09/27/23 17:13
Total Protein 6.6 g/dl (6.3-8.2) 09/27/23 17:13
Albumin 4.1 g/dl (3.5-5.0) 09/27/23 17:13
Physical Exam
-
AAOx3, no apparent distress
No tachycardia
No dyspnea on room air
ABD flat, nontender, nondistended
Left lower extremity with scant edema, left thigh soft, GUILLERMINA drain sites CDI and output serosanguineous, left DP +2 palpable foot warm
[2023-10-01] MEDS: LASIX 20 MG PO (09:09)
[2023-10-01] MEDS: OSCAL 500 + D 500 MG PO (09:10)
[2023-10-01] MEDS: ELIQUIS 5 MG PO (09:10)
[2023-10-01] MEDS: JARDIANCE 10 MG PO (09:10)
[2023-10-01 09:28] VITALS: BMI 32.7
--- NOTE | 2023-10-01 10:14 | CM ---
Addendum entered by Emperatriz Crawford 10/01/23 10:49:
wheelchair van cost and phone number for credit card given to patient and he indicated he would reach out to daughter, CM x2 with no response this am.
Original Note:
CM called to patient daughter following discussion with patient and plan is currently either transfer with wheelchair van or if confirmed with patient daughter. Please call facility with report. CM will continue to follow for discharge planning
needs.
Plan; SNF today
--- NOTE | 2023-10-01 10:21 | W.PN.HOSP.TC ---
Today's Communication/Plan
-
d/c
Assessment / Plan
Assessment / Plan
pt is an 87 year old male
mechanical fall resulting in Left Thigh Hematoma exacerbated by Eliquis with impending compartment syndrome --apprec vascular surgery (CT scan showed active bleeding), s/p Urgent L thigh evacuation hematoma, anterior compartment fasciotomies, and
closure over drains 09/27--HGB did drop 2 gms but from 15 to 13 but stabilized--restarted Eliquis per vascular--still no need for transfusion at this time--OOB, PT/OT--ok for d/c
Left Forearm Abrasion--Left Scalp Abrasion - Skin lesions cleaned and dressed in the ED - CT head was unremarkable - Wound Care eval for local care recommendations.
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
Chronic HFpEF - Stable. Appears euvolemic - Continue current regimen of Jardiance, Lasix, etc- Follow I/Os, daily weights, etc.
MY on BiPAP - Patient uses BiPAP at home - he believes 11/18 - Family bringing his machine from home for use.
DVT Prophylaxis: SCDs
Code Status: Full
Anticipated Discharge: Today
Subjective/Interval History
-
Date of Service: October 01, 2023
pt ready for d/c
Objective Data
-
Labs:
Laboratory Results
10/01/23
05:52
WBC 7.4
Hgb 12.9 L
Hct 36.9 L
Plt Count 131
Vital Signs:
max temp for 24 hours
10/01/23
03:08
Temp 98.5 F
Vital Signs
Temp Pulse Resp BP Pulse Ox
97.6 F 54 16 127/63 95
10/01/23 07:00 10/01/23 07:00 10/01/23 07:00 10/01/23 07:00 10/01/23 07:00
I&O
09/30/23 10/01/23 10/02/23
06:59 06:59 06:59
Intake Total 530 / 530 720 / 720
Output Total 618 / 618 1250 / 1250
Balance -88 / -88 -530 / -530
Review of Systems
-
All other systems: Reviewed and negative
Physical Exam
-
General: Well Developed, Well Nourished and No Apparent Distress
Respiratory: Clear to Auscultation; Negative Wheezes or Rhonchi
Cardiac: Regular Rhythm and S1/S2; Negative Murmur
GI: Soft, Nontender, Nondistended and Normal Bowel Sounds
Musculoskeletal: No Clubbing, No Cyanosis and Other (left leg softer with drains)
Neuro: Awake
Psych: Calm
[2023-10-01 11:00] VITALS: BP 137/68
[2023-10-01] MEDS: PREVNAR 20 0.5 ML IM (12:36)
--- NOTE | 2023-10-01 17:33 | W.DCSUMMARY ---
Discharge Summary
Discharge Data
Date of Admission: 09/28/23
Date of Discharge: 10/01/23
-
Pending Results: No
Hospital Course
Primary care physician : Kandy Flores
Principal Discharge diagnosis : Mechanical fall resulting in left thigh hematoma exacerbated by Eliquis with impending compartment syndrome
Chronic Discharge diagnosis : Persistent atrial fibrillation, chronic diastolic congestive heart failure with preserved ejection fraction, obstructive sleep apnea on BiPAP
Hospital Course : Patient was an 87-year-old male with a history of persistent atrial fibrillation on Eliquis who presented with left leg pain after a fall. Patient stated he was working in his garden when he stumbled and fell. He actually landed
on the frame of one of his raised garden beds and he struck his left thigh and left forearm. Patient also had a small abrasion to the left side of his scalp. He noted that he landed on his cell phone which was in his pocket. He was able to get up
and continue to work and then return to his house. As the day went on he developed increasing pain in the left thigh, and ultimately was unable to stand and bear weight due to the pain. Patient was admitted.
Problem #1: Mechanical fall resulting in left thigh hematoma exacerbated by Eliquis with impending compartment syndrome. Patient was admitted and initial hemoglobin was 15. Eliquis was held. The following morning, patient's hemoglobin was noted
to fall to 13 and he was having trouble lifting his leg off the bed. Upon review of the CAT scan of his leg done in the emergency department, left thigh hematoma was noted without any significant dimensions to delineate and a focal area of contrast
accumulation was noted compatible with active bleeding in the left lateral thigh to the proximal to the left femur. Vascular surgery was immediately consulted and the patient went to the operating room urgently. He underwent left thigh hematoma
evacuation along with fasciotomies, a small bleeding vein was also noted during the surgery. Patient was moved to the intermediate care unit for close monitoring postoperatively. Patient's hemoglobin stabilized in and around the 13 range. He did
not require any blood transfusions. He will be discharged with drains in place. Vascular surgery has cleared him to restart his Eliquis. He was seen in consultation by PT and OT and recommended for intermediate facility for rehab.
Problem #2: All other medical issues. These include Persistent atrial fibrillation, chronic diastolic congestive heart failure with preserved ejection fraction, obstructive sleep apnea on BiPAP. These medical issues were stable during his
hospitalization. Medications were continued as able.
Patient is stable for discharge with the drains in place to rehab. If there are any questions regarding this dictation or his hospital stay, please not hesitate to call. Our office number is [phone].
Important imaging findings :
CT SCAN LEFT LEG IMPRESSION: Rounded fullness to the anterolateral aspect of the left thigh musculature, compatible with left thigh hematoma and adjacent edema within the musculature.
Exact dimensions of the hematoma are difficult to delineate with poor definition between presumed hematoma and left thigh musculature.
There is a focal area of contrast accumulation within the left thigh as described, lateral to the proximal left femur, compatible with active bleeding. Continued clinical follow-up is advised to look for continued swelling of the left thigh. Also,
serial measurement of hemoglobin may be useful.
No evidence for fracture.
Procedure findings :
Primary Surgeon: Edmund
Assisting Surgeon: COLLETTE Shields
Pre-op Diagnosis: Tense L thigh expanding hematoma with weakness.
Post-op Diagnosis: same
Procedure Performed: Urgent L thigh evacuation hematoma, anterior compartment fasciotomies, and closure over drains.
Anesthesia Type: General
Specimen: Hematoma
Estimated Blood Loss: 50cc at most acute blood, and likely ~200 cc or more old hematoma.
Complications: none
Operative Findings: Diffuse hematoma in muscle compartment, but mostly focally located collection with anterior compartment muscles.
Discharge Plan
-
Patient Disposition: Prison/SNF
Discharge Diagnosis/Procedures: Mechanical fall, left thigh hematoma with active bleeding exacerbated by Eliquis with impending compartment syndrome, left forearm and left scalp abrasions, persistent atrial fibrillation, chronic diastolic congestive
heart failure without exacerbation, obstructive sleep apnea on BiPAP
Condition: Good
Diet: As tolerated
Activity: No strenuous activity
Driving Restrictions: Not until seen by your Dr
Bathing Restrictions: Keep drains clean
Activity Restrictions/Additional Instructions:
Wound Care Instructions
L arm and hand skin tears-clean with saline, Vaseline gauze or Xeroform gauze, cover with gauze pad or abd pad, Secure with Monica (add stockinet if needed). Change daily and prn drainage.
Head dry abrasions-clean with saline or soap and water daily.
Elevate heels off bed with pillow/s.
Follow up at wound care center if needed, call for an appointment.
You may leave your left thigh surgical incision/sutures open to air. However, they may pull underclothing so you may prefer to cover them with a simple single piece of gauze and 1 to 2 pieces of paper tape to adhere to skin. Change daily or as
needed if soiled. Cover drain sites with drain gauze and simple tape to secure, change daily or as needed if soiled.
Stand Alone Forms: DC Instr - Vascular OR
Referrals:
Kandy Flores, DO [Family Provider] - in less than 1 week
Andra Kate CRNP [Specified Professional Personl] - 10/07/23 2:00 pm
Prescriptions:
New
acetaminophen 325 mg Tablet
650 mg PO Q4HPRN PRN (Reason: Mild Pain / Temp > 101) Qty: 0 0RF
Continued
atorvastatin [Lipitor] 10 MG tablet
10 mg PO QPM
finasteride [Proscar] 5 MG tablet
5 mg PO QPM
calcium carbonate-vitamin D3 [Calcium 600 + D(3)] 600 mg-5 mcg (200 unit) Tablet
1 tab PO BID
furosemide 20 mg Tablet
20 mg PO DAILY
Centrum Silver 400-250 mcg Tablet,Chewable
1 tab PO DAILY
Eliquis 5 mg Tablet
5 mg PO BID
Jardiance 10 mg Tablet
10 mg PO DAILY
Discharge Orders:
Discharge Patient (As Directed); Ordered 10/01/23
Ordered By: Adriana Patricio
Discharge Date and Time
Discharge Date/Time: 10/01/23 12:47
Print Language: FAROESE
== END 2023-10-01 12:47 | DRG 580 ==
LOC: 2 SOUTH 09:46
PROVIDERS: Nurse Practitioner; Physician Assistant; ADMITTING PHYSICIAN Hospitalist; ATTENDING PHYSICIAN Internal Medicine; CONSULT PHYSICIAN Surgery Vascular Surgery; EMERGENCY PHYSICIAN Student in an Organized Health Care Education/Training Program; FAMILY PHYSICIAN Family Medicine
PROC: 0KNR0ZZ Release Left Upper Leg Muscle, Open Approach (ICD-10-PCS; 2023-09-28)
PROC: 0J9M00Z Drainage of Left Upper Leg Subcutaneous Tissue and Fascia with Drainage Device, Open Approach (ICD-10-PCS; 2023-09-28)
PROC: 0JCM0ZZ Extirpation of Matter from Left Upper Leg Subcutaneous Tissue and Fascia, Open Approach (ICD-10-PCS; 2023-09-28)
DX: S70.12XA Contusion of left thigh, initial encounter (principal); D68.32 Hemorrhagic disorder due to extrinsic circulating anticoagulants; I48.19 Other persistent atrial fibrillation; I50.32 Chronic diastolic (congestive) heart failure; W18.39XA Other fall on same level, initial encounter; I11.0 Hypertensive heart disease with heart failure; G47.33 Obstructive sleep apnea (adult) (pediatric); S50.812A Abrasion of left forearm, initial encounter; S00.01XA Abrasion of scalp, initial encounter
CPT/HCPCS: 10140; 27600; 70450; 73090; 73552; 73701; 80048; 80053; 83735; 85014; 85018; 85025; 85027; 85610; 85730; 90677; 96374; 97116; 97163; 97167; 99285; G0009; Q9967

== ENCOUNTER → 2023-10-12 09:44 | Outpatient (REF) | payer MEDICARE, OTHER, SELFPAY | LOC: RAD 09:44 | PROVIDERS: ATTENDING PHYSICIAN Registered Nurse; FAMILY PHYSICIAN Family Medicine | DX: S70.12XA Contusion of left thigh, initial encounter (principal); R22.43 Localized swelling, mass and lump, lower limb, bilateral | CPT/HCPCS: 93971 ==